=== PATIENT | male | born 2005 | race Caucasian/White ===

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

== ENCOUNTER 2024-04-12 14:00 | Emergency (ER) | payer OTHER ==
[~2024-04-12] VITALS: Ht 190.5 cm; Wt 79.4 kg
[2024-04-12 14:02] VITALS: BP 126/89
[2024-04-12] MEDS ORDERED: Hydrocortisone 1% Cream 30 gm TOP ONE (14:50)
[2024-04-12] MEDS ORDERED: Triamcinolone Inj Susp 40 MG / ML 1ML Vial IM ONE (14:55)
[2024-04-12] MEDS ORDERED: CORTISONE60 GM TOP (15:02)
== END 2024-04-12 15:20 | disposition home or self-care (01) ==
LOC: ER 14:00
DX: L23.7 Allergic contact dermatitis due to plants, except food (principal)
CPT/HCPCS: 96372; 99282-25; A9270; J3301